=== PATIENT | female | born 1985 | race Caucasian/White ===

== ENCOUNTER 2016-04-14 22:16 | Emergency (ER) | payer OTHER ==
[2016-04-14 22:55] LABS: URINE SOURCE CLEAN CATCH
--- NOTE | 2016-04-14 22:57 | PROVIDER DOCUMENTATION ---
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 pt reports this is the same pain she has always had, denies new numbness, tingling, weakness, loss of bowel or bladder. Review of Systems - Adult - REVIEW OF SYSTEMS - ADULT Constitutional: reports: no symptoms reported. denies: chills, fatique, weight gain, weight loss Eyes: reports: no symptoms reported. denies: discharge, blurred vision, double vision Ears, Nose, Mouth & Throat: reports: no symptoms reported. denies: ear discharge, ear pain, nose pain, loose teeth, throat pain, throat swelling Cardiovascular: reports: no symptoms reported. denies: chest pain, palpitations Respiratory: reports: no symptoms reported. denies: chronic cough, cough, shortness of breath, wheezing Gastrointestinal: reports: no symptoms reported. denies: abdominal pain, diarrhea, nausea, vomiting Genitourinary: reports: no symptoms reported. denies: dysuria, hematuria, urgency Musculoskeletal: reports: see HPI, back pain. denies: bone pain, frequent leg cramps, joint pain, joint swelling, muscle aches, muscle weakness, neck pain Integumentary: reports: no symptoms reported. denies: hives, rash Neurological: reports: no symptoms reported. denies: ataxia, dizziness/vertigo , loss of balance, numbness, paresthesia Psychiatric: reports: no symptoms reported Endocrine: reports: no symptoms reported Hematologic/Lymphatic: reports: no symptoms reported Allergic/Immunologic: reports: no symptoms reported All Other Systems: Reviewed and Negative Past History - Adult - PAST MEDICAL HISTORY-ADULT Review of Records: reports: Old Records Reviewed, Nursing Assessment Review, Medications Reviewed, Social history reviewed & non-contributory. Major Childhood Illnesses: reports: denies history Cardiovascular: reports: denies history Respiratory: reports: asthma Gastrointestinal: reports: denies history Obstetrical/Gynecological: reports: denies history Genitourinary: reports: denies history Musculoskeletal: reports: denies history Neurological: reports: denies history Endocrine/Immune: reports: denies history Other Conditions: reports: denies history - PRIOR SURGERIES/PROCEDURES Surgical/Procedure History: reports: BTL - PRIOR HOSPITALIZATIONS Prior Hospitalizations: reports: none - IMMUNIZATION STATUS Childhood Immunizations: UTD Flu Vaccine: See Nurse Assessment - FAMILY HISTORY Family History: reviewed, not pertinent - SOCIAL HISTORY Smoking: cigarettes Provider spent 3-5 mins advising pt. on dangers of tobacco.: Discussed manners to quit use, and f/u contacts for add'l counseling. Substance Use: none/never Alcohol Use Frequency: never Physical Exam-General - PHYSICAL EXAM-ADULT Initial Vital Signs Reviewed: Yes - CONSTITUTIONAL General Appearance: appears well, alert, no apparent distress - EYES Eyes: pink conjunctivae - HEAD, EARS, NOSE, MOUTH & THROAT HENMT: normocephalic/atraumatic, moist mucous membranes, normal ENT inspection - NECK Neck: non-tender, full range of motion, supple, normal inspection - RESPIRATORY Respiratory: chest non-tender, lungs clear, normal breath sounds - CARDIOVASCULAR Cardiovascular: normal peripheral pulses, regular rate, rhythm, no edema - GASTROINTESTINAL (ABDOMEN) Abdominal Exam: normal bowel sounds, non tender, soft - GENITOURINARY Rectal Exam: deferred Hemoccult Exam: deferred - LYMPHATIC Lymphatic: no adenopathy - MUSCULOSKELETAL Back Exam: normal inspection, no CVA tenderness, no vertebral tenderness, other (lumbaer tenderness with radiation down bilateral buttocks). negative: CVA tenderness, decreased range of motion, ecchymosis, kyphosis, lordosis, muscle spasm, scoliosis, swelling, vertebral tenderness Extremity: normal range of motion, non-tender, normal gait Peripheral Pulses: radial (R): 3+, radial (L): 3+ - SKIN Integumentary: normal color, normal turgor, warm/dry - NEUROLOGIC Neurologic: grossly normal, no motor/sensory deficits - PSYCHIATRIC Psych/Mental Status: normal mood/affect, normal thought content, normal thought process, oriented x 3 Progress - PLAN OF CARE/RESULTS Progress/Plan/Lab Results: Laboratory Tests 04/14/16 04/14/16 22:45 22:45 Urine Source CLEAN CATCH Urine Color YELLOW Urine Clarity SLIGHTLY HAZY A Urine pH 6.0 Ur Specific [place] 1.025 Urine Protein TRACE A Urine Ketones NEGATIVE Urine Blood 1+ A Urine Nitrite NEGATIVE Urine Bilirubin NEGATIVE Urine Urobilinogen 1+(1 mg/dL) Urine Microscopic RBC <10 Urine WBC NEGATIVE Urine Microscopic WBC <10 Ur Epithelial Cells <10 Urine Crystals CA OXALATE PRESENT Urine Bacteria 2+ Urine Glucose NEGATIVE Urine Test NEGATIVE Orders Category Date Time Status TEST-URINE [PREG] Stat Lab 04/14/16 22:[address] W/POSS RFLX CULT [URINALYSIS] Stat Lab 04/14/16 22:45 Completed URINE CULTURE [RM] Routine Lab 04/14/16 23:40 Ordered Hydrocodone/APAP 7.5 mg/325 mg [[place]-7.5] Med 04/15/16 00:00 Discontinued 1 each PO NOW ONE Orphenadrine [Norflex] Med 04/15/16 00:01 Discontinued 100 mg PO NOW ONE Vital Signs - 24 hr 04/14/16 04/15/16 22:38 00:17 Temperature 99.0 F Pulse Rate 78 74 Respiratory 18 Rate Blood Pressure 122/85 117/70 O2 Sat by Pulse 100 99 Oximetry Departure - Departure Time of Disposition Order: 23:59 DIAGNOSIS: Lumbar back pain Qualifiers: Chronicity: chronic Back pain laterality: bilateral Sciatica presence: with sciatica Sciatica laterality: bilateral sciatica Qualified Code(s): M54.42 - Lumbago with sciatica, left side Disposition: HOME 01 Certified Medical Emergency: Emergent Condition: Stable Additional Instructions: ED Follow Up Instructions: You have been treated by a care provider in the Emergency Department. These instructions are being provided to you so you can have an understanding of how to care for yourself upon discharge. Upon discharge from the Emergency Department, you are responsible for making arrangements for follow-up care by a physician of your choice. Take all prescribed medications as directed. Return to the Emergency Department immediately for any new or worsening symptoms. You may call the Physician Referral phone number at [phone] to obtain a list of Physicians who are taking new patients. Prescriptions: Ibuprofen [Motrin] 800 mg PO Q8H PRN PRN #20 tablet PRN Reason: inflammation Orphenadrine [Norflex] 100 mg PO BID #10 tablet Famotidine [Pepcid] 20 mg PO DAILY #20 tablet Referrals: Jacquie Mendoza MD [STAFF PHYSICIAN] - Forms: Return to School/Parent Work Instructions: Famotidine tablets or gelcaps, Ibuprofen tablets and capsules, Back Pain, Adult, [id number], Orphenadrine tablets Attestation - Physician/ Mid-level Attestation Patient care was provided by Mid-level provider (BUILDING MAINTENANCE SUPERINTENDENT/PA):: Yes Mid-level provider:: Jennifer Gilliam Mid-level documentation review:: The Mid-level provider documentation, treatment plan and medical decision making was reviewed by the physician who agrees with all treatment and medical decision making by the MLP.
[2016-04-14 23:33] LABS: BILIRUBIN URINE NEGATIVE (NEGATIVE); BLOOD URINE 1+ (NEGATIVE); CLARITY SLIGHTLY HAZY (CLEAR); COLOR YELLOW; GLUCOSE URINE NEGATIVE (NEGATIVE); LEUKOCYTES URINE NEGATIVE (NEGATIVE); NITRITE URINE NEGATIVE (NEGATIVE); PROTEIN URINE TRACE mg/dL (NEGATIVE); SP GRAVITY URINE 1.025; UROBILINOGEN URINE 1+(1 mg/dL)
[2016-04-14 23:39] LABS: URINE RBC <10 /HPF (<10); URINE WBC <10 /HPF (<10)
[2016-04-14 23:40] LABS: URINE CRYSTAL CA OXALATE PRESENT /HPF; URINE CULTURE PL NEEDED? YES; URINE EPITHELIAL CELLS <10 /HPF (<10)
[2016-04-15] MEDS ORDERED: NORCO-7.5 PO ONE
[2016-04-15] MEDS ORDERED: NORFLEX PO ONE (00:01)
[2016-04-15 00:17] VITALS: BP 117/70
== END 2016-04-15 00:18 | disposition home or self-care (01) ==
LOC: P.ED 22:16
DX: M54.42 Lumbago with sciatica, left side (principal); M79.1 Myalgia; F17.210 Nicotine dependence, cigarettes, uncomplicated; Z71.6 Tobacco abuse counseling; Z79.899 Other long term (current) drug therapy
CPT/HCPCS: 81001; 81025; 87088; 99283

== ENCOUNTER 2016-04-15 12:44 | Emergency (ER) | payer OTHER ==
[2016-04-15 13:10] VITALS: BP 119/76
[2016-04-15] MEDS ORDERED: TORADOL IM ONE (14:33)
--- NOTE | 2016-04-15 14:34 | PROVIDER DOCUMENTATION ---
HPI-Musculoskeletal Pain/Inj <Carola MuñozSven - Last Filed: 04/15/16 14:33> - GENERAL Source: patient - HX OF PRESENT ILLNESS-MUSKULOSKELTAL Quality of Pain: reports: aching Severity in ED: mild Onset/Duration: gradual, 3 days ago Timing: still present, constant Modifying Factors: worse with: movement Locality of Occurance: Home Similar Symptoms Previously?: Yes Recently seen or treated by another doctor?: Yes - BACK & NECK PAIN/INJURY Back/Neck Pain Location: reports: lumbar spine Back/Neck Pain Radiation: reports: Upper Legs, Lower Legs Context / Method of Injury: reports: unknown Associated Symptoms: reports: lower back pain. denies: loss of bladder control , loss of bowel control, fever History of Chronic Neck or Back Pain?: No <Juanjo Barboza - Last Filed: 04/15/16 15:17> - GENERAL Chief Complaint: Back Pain Stated Complaint: RECHECK Time Seen by Provider: 04/15/16 14:25 - HX OF PRESENT ILLNESS-MUSKULOSKELTAL Nature of Presenting Problem: pt is a 30 y/o f that presents with 3 days of low back pain. denies injury, denies hematuria, n/v/d, or abdominal pain. no loss of bowel or urine control. was seen at [facility] yesterday for same and dx with back pain. Pain radiates down both legs (Juanjo Barboza) Review of Systems - Adult - REVIEW OF SYSTEMS - ADULT Constitutional: denies: chills, fever Eyes: reports: no symptoms reported Ears, Nose, Mouth & Throat: reports: no symptoms reported Cardiovascular: denies: chest pain, edema, palpitations Respiratory: denies: cough, shortness of breath, wheezing Gastrointestinal: denies: abdominal pain, diarrhea, nausea, vomiting Genitourinary: denies: dysuria, frequency, hematuria Musculoskeletal: reports: back pain. denies: muscle aches, neck pain Integumentary: reports: no symptoms reported Neurological: denies: dizziness/vertigo, seizure, tremors Psychiatric: reports: no symptoms reported Endocrine: reports: no symptoms reported Hematologic/Lymphatic: reports: no symptoms reported Allergic/Immunologic: reports: no symptoms reported All Other Systems: Reviewed and Negative <Juanjo Barboza - Last Filed: 01/09/17 15:17> Past History - Adult - PAST MEDICAL HISTORY-ADULT Major Childhood Illnesses: reports: denies history Cardiovascular: reports: denies history Respiratory: reports: asthma Gastrointestinal: reports: denies history Obstetrical/Gynecological: reports: denies history Genitourinary: reports: denies history Musculoskeletal: reports: denies history Neurological: reports: denies history Endocrine/Immune: reports: denies history Other Conditions: reports: denies history - PRIOR SURGERIES/PROCEDURES Surgical/Procedure History: reports: BTL - PRIOR HOSPITALIZATIONS Prior Hospitalizations: reports: none - IMMUNIZATION STATUS Childhood Immunizations: UTD Flu Vaccine: See Nurse Assessment - FAMILY HISTORY Family History: reviewed, not pertinent <Carola Muñoz - Last Filed: 04/15/16 14:33> - PAST MEDICAL HISTORY-ADULT Review of Records: reports: Old Records Reviewed, Nursing Assessment Review, Medications Reviewed Musculoskeletal: reports: intervertebral disc disease - PRIOR SURGERIES/PROCEDURES Surgical/Procedure History: reports: reviewed, not pertinent - IMMUNIZATION STATUS Childhood Immunizations: See Nurse Assessment Flu Vaccine: See Nurse Assessment - FAMILY HISTORY Family History: reviewed, not pertinent - SOCIAL HISTORY Smoking: cigarettes, less than 1 pack/day Living Situation: family <Juanjo Barboza - Last Filed: 04/15/16 15:17> Physical Exam-Injury Related - Physical Exam-Injury Related Initial Vital Signs Reviewed: Yes General Appearance: alert, no apparent distress Eyes: PERRL/EOMI, pink conjunctivae Head, Ears, Nose, Mouth & Throat: normocephalic/atraumatic, moist mucous membranes, normal ENT inspection Neck: full range of motion, normal inspection Respiratory: lungs clear, normal breath sounds, no respiratory distress, no accessory muscle use Cardiovascular: regular rate, rhythm, no edema, no gallop Peripheral Pulses: dorsalis-pedis (R): 4+, dorsalis-pedis (L): 4+ Abdominal Exam: normal bowel sounds, non tender, soft, no organomegaly, no pulsatile mass Back Exam: no CVA tenderness, other (paraspinous tenderness lumbar area) Extremity: normal range of motion, normal inspection, no pedal edema Integumentary: normal color, warm/dry Neurologic: scalemaker II-XII nml as tested, no motor/sensory deficits Psych/Mental Status: normal mood/affect, normal thought content, normal thought process, oriented x 3 <Juanjo Barboza - Last Filed: 04/15/16 15:17> Progress <Carola Muñoz - Last Filed: 04/15/16 14:33> <Juanjo Barboza - Last Filed: 04/15/16 15:17> - PLAN OF CARE/RESULTS Progress/Plan/Lab Results: Vital Signs Temp Pulse Resp BP Pulse Ox 04/15/16 13:08 98.2 F 68 18 119/76 98 No Known Allergies Allergy (Verified 04/15/16 15:09) Cyclobenzaprine [Flexeril] 10 mg PO TID #20 tablet 04/15/16 Famotidine [Pepcid] 20 mg PO DAILY #20 tablet 04/15/16 Ketorolac [Toradol] 10 mg PO Q6H PRN PRN #20 tablet 04/15/16 Orders Category Date Time Status Ketorolac [Toradol] Med 04/15/16 14:33 Discontinued 30 mg IM NOW ONE (Juanjo Barboza) Departure - Departure Time of Disposition Order: 14:33 Certified Medical Emergency: Emergent <Carola Muñoz - Last Filed: 04/15/16 14:33> <Juanjo Barboza - Last Filed: 04/15/16 15:17> - Departure DIAGNOSIS: Lumbar back pain Qualifiers: Chronicity: chronic Back pain laterality: bilateral Sciatica presence: with sciatica Sciatica laterality: bilateral sciatica Qualified Code(s): M54.42 - Lumbago with sciatica, left side Disposition: HOME 01 Condition: Stable Additional Instructions: Follow up with Dr. Puga, orthopedic ED Follow Up Instructions: You have been treated by a care provider in the Emergency Department. These instructions are being provided to you so you can have an understanding of how to care for yourself upon discharge. Upon discharge from the Emergency Department, you are responsible for making arrangements for follow-up care by a physician of your choice. Take all prescribed medications as directed. Return to the Emergency Department immediately for any new or worsening symptoms. You may call the Physician Referral phone number at [phone] to obtain a list of Physicians who are taking new patients. Prescriptions: Cyclobenzaprine [Flexeril] 10 mg PO TID #20 tablet Famotidine [Pepcid] 20 mg PO DAILY #20 tablet Ketorolac [Toradol] 10 mg PO Q6H PRN PRN #20 tablet PRN Reason: Pain Referrals: None,PCP [Primary Care Provider] - Amor Puga MD [STAFF PHYSICIAN] - Forms: Return to School/Parent Work Instructions: Back Pain, Adult, [id number] Attestation - Scribe Verification/Attestation Scribe:: Juanjo Barobza Acting as Scribe for:: Carola Muñoz Scribe documention review:: This chart was documented by a scribe and accurately reflects the service the provider performed and the decisions made by the provider. - Physician/ Mid-level Attestation Patient care was provided by Mid-level provider (INFECTION PREVENTIONIST/PA):: Yes Mid-level provider:: Carola Muñoz Mid-level documentation review:: The Mid-level provider documentation, treatment plan and medical decision making was reviewed by the physician who agrees with all treatment and medical decision making by the P. <Juanjo Barboza - Last Filed: 04/15/16 15:17> Physician Attestation
== END 2016-04-15 15:14 | disposition home or self-care (01) ==
LOC: ED 12:44
DX: M54.42 Lumbago with sciatica, left side (principal); M79.605 Pain in left leg; M79.604 Pain in right leg; R42 Dizziness and giddiness; F17.210 Nicotine dependence, cigarettes, uncomplicated
CPT/HCPCS: 96372; J1885

== ENCOUNTER 2016-06-11 03:57 | Emergency (ER) | payer OTHER ==
[2016-06-11 04:24] VITALS: BP 115/66
[2016-06-11 04:40] LABS: URINE SOURCE CLEAN CATCH
[2016-06-11 05:09] LABS: BILIRUBIN URINE NEGATIVE (NEGATIVE); BLOOD URINE TRACE (NEGATIVE); CLARITY CLEAR (CLEAR); COLOR YELLOW; GLUCOSE URINE NEGATIVE (NEGATIVE); LEUKOCYTES URINE TRACE (NEGATIVE); NITRITE URINE NEGATIVE (NEGATIVE); PROTEIN URINE TRACE mg/dL (NEGATIVE); SP GRAVITY URINE 1.015; UROBILINOGEN URINE NORMAL
[2016-06-11 05:10] LABS: URINE RBC <10 /HPF (<10); URINE WBC <10 /HPF (<10)
[2016-06-11 05:11] LABS: URINE CULTURE PL NEEDED? YES; URINE EPITHELIAL CELLS <10 /HPF (<10)
--- NOTE | 2016-06-11 05:27 | PROVIDER DOCUMENTATION ---
HPI-Female /OB/Breast - General Chief Complaint: Female Stated Complaint: UTI SX, CONGESTED Time Seen by Provider: 06/11/16 05:13 Source: reports: patient Allergies/Adverse Reactions: Patient Allergies Allergy/AdvReac Type Severity Reaction Status Date / Time No Known Allergies Allergy Verified 05/05/16 11:41 Home Medications: Home Medication List Medication Instructions Recorded Confirmed Last Taken Type Acetaminophen with Codeine 1 each PO Q6H PRN PRN #14 tablet 06/11/16 Unknown Rx [Tylenol with Codeine #3 Tablet] Ciprofloxacin HCl [Cipro] 500 mg PO BID #14 tablet 06/11/16 Unknown Rx - History of Present Illness-Female /OB Nature of Presenting Problem: dysuria for days having back pain Does patient report she is ?: No Location of complaint: reports: right flank, left flank Radiation: reports: none Quality of Pain: reports: aching Severity in ED: reports: moderate Onset/Duration: reports: 2 days ago Timing: reports: still present Context/Activities at Onset: reports: light activity Vaginal Symptoms: reports: no symptoms Vaginal Bleeding Amount: None Urinary Symptoms: reports: dysuria, frequency Related Symptoms: reports: no symptoms Modifying Factors: improves with: nothing Associated Symptoms: reports: back/neck pain. denies: constipation, fever/ chills, nausea, vomiting, weakness Similar Symptoms Previously?: No Recently seen or treated by another doctor?: No Review of Systems - Adult - REVIEW OF SYSTEMS - ADULT Constitutional: reports: chills. denies: fever, night sweats Eyes: reports: no symptoms reported Ears, Nose, Mouth & Throat: reports: no symptoms reported Cardiovascular: reports: no symptoms reported Respiratory: reports: cough Gastrointestinal: reports: no symptoms reported. denies: hematemesis, nausea, vomiting Genitourinary: reports: dysuria, frequency, hematuria Musculoskeletal: reports: back pain Integumentary: reports: no symptoms reported Neurological: reports: no symptoms reported Psychiatric: reports: no symptoms reported Endocrine: reports: no symptoms reported Hematologic/Lymphatic: reports: no symptoms reported Allergic/Immunologic: reports: no symptoms reported Past History - Adult - PAST MEDICAL HISTORY-ADULT Review of Records: reports: Nursing Assessment Review, Medications Reviewed, Social history reviewed & non-contributory. Major Childhood Illnesses: reports: denies history Cardiovascular: reports: denies history Respiratory: reports: asthma Gastrointestinal: reports: denies history Obstetrical/Gynecological: reports: denies history Genitourinary: reports: denies history Musculoskeletal: reports: intervertebral disc disease Neurological: reports: denies history Endocrine/Immune: reports: denies history Other Conditions: reports: denies history - PRIOR SURGERIES/PROCEDURES Surgical/Procedure History: reports: reviewed, not pertinent - PRIOR HOSPITALIZATIONS Prior Hospitalizations: reports: none - IMMUNIZATION STATUS Childhood Immunizations: See Nurse Assessment Flu Vaccine: See Nurse Assessment - FAMILY HISTORY Family History: reviewed, not pertinent Physical Exam-General - PHYSICAL EXAM-ADULT Initial Vital Signs Reviewed: Yes - CONSTITUTIONAL General Appearance: no apparent distress - EYES Eyes: PERRL/EOMI, pink conjunctivae - HEAD, EARS, NOSE, MOUTH & THROAT HENMT: normocephalic/atraumatic - NECK Neck: supple - RESPIRATORY Respiratory: lungs clear - CARDIOVASCULAR Cardiovascular: regular rate, rhythm - GASTROINTESTINAL (ABDOMEN) Abdominal Exam: soft - LYMPHATIC Lymphatic: no adenopathy - MUSCULOSKELETAL Back Exam: no CVA tenderness, muscle spasm Extremity: normal range of motion - SKIN Integumentary: normal color, normal turgor - NEUROLOGIC Neurologic: grossly normal - PSYCHIATRIC Psych/Mental Status: normal mood/affect Progress - PLAN OF CARE/RESULTS Progress/Plan/Lab Results: Laboratory Tests 06/11/16 06/11/16 04:25 04:25 Urine Source CLEAN CATCH Urine Color YELLOW Urine Clarity CLEAR Urine pH 6.0 Ur Specific [place] 1.015 Urine Protein TRACE A Urine Ketones NEGATIVE Urine Blood TRACE Urine Nitrite NEGATIVE Urine Bilirubin NEGATIVE Urine Urobilinogen NORMAL Urine Microscopic RBC <10 Urine WBC TRACE A Urine Microscopic WBC <10 Ur Epithelial Cells <10 Urine Bacteria 2+ Urine Glucose NEGATIVE Urine Test NEGATIVE Departure - Departure Time of Disposition Order: 05:25 DIAGNOSIS: UTI (urinary tract infection) Qualifiers: Urinary tract infection type: acute cystitis Hematuria presence: without hematuria Qualified Code(s): N30.00 - Acute cystitis without hematuria Disposition: HOME 01 Certified Medical Emergency: Emergent Condition: Stable Additional Instructions: ED Follow Up Instructions: You have been treated by a care provider in the Emergency Department. These instructions are being provided to you so you can have an understanding of how to care for yourself upon discharge. Upon discharge from the Emergency Department, you are responsible for making arrangements for follow-up care by a physician of your choice. Take all prescribed medications as directed. Return to the Emergency Department immediately for any new or worsening symptoms. You may call the Physician Referral phone number at [phone] to obtain a list of Physicians who are taking new patients. Prescriptions: Acetaminophen with Codeine [Tylenol with Codeine #3 Tablet] 1 each PO Q6H PRN PRN #14 tablet PRN Reason: Pain Ciprofloxacin HCl [Cipro] 500 mg PO BID #14 tablet
[2016-06-11] MEDS ORDERED: CIPRO PO ONE (05:29)
[2016-06-11] MEDS ORDERED: PYRIDIUM PO ONE (05:29)
== END 2016-06-11 05:55 | disposition home or self-care (01) ==
LOC: P.ED 03:57
DX: N30.00 Acute cystitis without hematuria (principal); R30.0 Dysuria; M54.5 Low back pain; R68.83 Chills (without fever); R35.0 Frequency of micturition; R05 Cough
CPT/HCPCS: 81001; 81025; 87088

== ENCOUNTER 2016-06-17 11:42 | Emergency (ER) | payer OTHER ==
[2016-06-17 13:17] LABS: URINE CULTURE NEEDED? NO; URINE MICRO REVIEW NEEDED? NO; URINE SOURCE CLEAN CATCH
[2016-06-17 13:24] LABS: BILIRUBIN URINE NEGATIVE (NEGATIVE); BLOOD URINE NEGATIVE (NEGATIVE); COLOR YELLOW; GLUCOSE URINE NEGATIVE (NEGATIVE); LEUKOCYTES URINE NEGATIVE (NEGATIVE); NITRITE URINE NEGATIVE (NEGATIVE); PH URINE 6.5; PROTEIN URINE TRACE mg/dL (NEGATIVE); SP GRAVITY URINE 1.029; TURBIDITY URINE CLEAR (CLEAR); UR EPITHELIAL CELLS <10 /HPF (<10); URINE BACTERIA NEGATIVE /HPF; URINE RBC <10 /HPF (<10); URINE WBC <10 /HPF (<10); UROBILINOGEN URINE NORMAL (NORMAL)
[2016-06-17 13:53] LABS: MANUAL DIFF NEEDED? NO
[2016-06-17 14:07] LABS: BASO% 0.2 % (0.0-0.8); EOS# 0.08 X1000 (0.0-0.7); EOS% 0.9 % (0.0-10.0); HEMATOCRIT 46.2 % (37.0-47.0); HEMOGLOBIN 16.2 g/dL (12.0-16.0); LYMPH# 1.05 X1000 (1.2-3.4); LYMPH% 11.3 % (20.5-51.1); MCH 28.7 PG (27-31); MCHC 35.1 g/dL (33-37); MCV 81.9 FL (81-99); MONO# 0.35 X1000 (0.11-0.59); MONO% 3.8 % (1.7-9.3); MPV 12.1 FL (7.4-10.4); NEUT% 83.8 % (42.2-75.2); PLT 129 X1000 (130-400); RBC 5.64 XMIL (4.2-5.4)
[2016-06-17 14:33] LABS: AGAP 13; ALBUMIN 4.3 g/dL (3.5-5.0); ALKALINE PHOSPHATASE 62 U/L (32-104); BUN 10 mg/dL (8-22); CALCIUM 9.3 mg/dL (8.8-10.2); CHLORIDE 104 mmol/L (98-107); COSMO 279; GOT 20 U/L (10-30); GPT 20 U/L (10-36); LIPASE 22 U/L (13-60); POTASSIUM 4.2 mmol/L (3.5-5.1); SODIUM 140 mmol/L (136-145); TCO2 23 mmol/L (25-35); TOTAL BILIRUBIN 0.63 mg/dL (0.20-1.00); TOTAL PROTEIN 7.6 g/dL (6.3-8.3)
[2016-06-17] MEDS ORDERED: ZOFRAN IV ONE (14:56)
[2016-06-17] MEDS ORDERED: TYLENOL PO ONE (15:08)
--- NOTE | 2016-06-17 15:11 | PROVIDER DOCUMENTATION ---
HPI-General Adult - General Source: patient - History of Present Illness -Gen Adult Nature of Presenting Problems: patient is a 30 y/o F that presents to the ER with one week of flu like symptoms. patient has cough, congestion, body aches, n/v/d, and fever. was seen last week at [facility] saw given antibiotic and T#3s with no relief of symptoms. Location of Pain/Injury: reports: generalized Quality of Pain: reports: aching Severity: reports: mild Onset/Duration: reports: gradual, 1 week ago Timing: reports: still present, constant Context/Activities at Onset: reports: other (recent URI) Modifying Factors: improves with: nothing Associated Symptoms: reports: cough, diarrhea, EENT symptoms, fever/chills, muscle aches, nausea, vomiting. denies: genitourinary problems Similar Symptoms Previously?: No Recently seen or treated by another doctor?: No <Juanjo Barboza - Last Filed: 06/17/16 15:08> <Moncho Sanches - Last Filed: 06/17/16 15:15> - General Chief Complaint: Flu Symptoms Stated Complaint: VOMITING,DIARRHEA,LOWER BACK PAIN Time Seen by Provider: 06/17/16 12:54 Allergies/Adverse Reactions: Patient Allergies Allergy/AdvReac Type Severity Reaction Status Date / Time No Known Allergies Allergy Verified 06/17/16 12:43 Home Medications: Home Medication List Medication Instructions Recorded Confirmed Last Taken Type Acetaminophen with Codeine 1 each PO Q6H PRN PRN #14 tablet 06/11/16 06/17/16 Unknown Rx [Tylenol with Codeine #3 Tablet] Ciprofloxacin HCl [Cipro] 500 mg PO BID #14 tablet 06/11/16 06/17/16 Unknown Rx Azithromycin [Zithromax Z-Moises] 250 mg PO DIRECTED #1 pkg 06/17/16 Unknown Rx Ibuprofen [Motrin] 800 mg PO Q8H PRN PRN #20 tablet 06/17/16 Unknown Rx Prednisone 20 mg PO DAILY #6 tablet 06/17/16 Unknown Rx Promethazine [Phenergan] 25 mg PO Q6H PRN PRN #20 tablet 06/17/16 Unknown Rx Review of Systems - Adult - REVIEW OF SYSTEMS - ADULT Constitutional: reports: chills, fever, fatique Eyes: reports: no symptoms reported Ears, Nose, Mouth & Throat: reports: no symptoms reported Cardiovascular: denies: chest pain, palpitations, syncope Respiratory: reports: cough. denies: shortness of breath, wheezing Gastrointestinal: reports: diarrhea, nausea, vomiting Genitourinary: reports: no symptoms reported Musculoskeletal: reports: muscle aches, muscle weakness Integumentary: reports: no symptoms reported Neurological: reports: no symptoms reported Psychiatric: reports: no symptoms reported Endocrine: reports: no symptoms reported Hematologic/Lymphatic: reports: no symptoms reported Allergic/Immunologic: reports: no symptoms reported All Other Systems: Reviewed and Negative <Juanjo Barboza - Last Filed: 06/17/16 15:08> Past History - Adult - PAST MEDICAL HISTORY-ADULT Review of Records: reports: Old Records Reviewed, Nursing Assessment Review, Medications Reviewed, Social history reviewed & non-contributory. Major Childhood Illnesses: reports: denies history Cardiovascular: reports: denies history Respiratory: reports: asthma Gastrointestinal: reports: denies history Obstetrical/Gynecological: reports: denies history Genitourinary: reports: denies history Musculoskeletal: reports: intervertebral disc disease Neurological: reports: denies history Endocrine/Immune: reports: denies history Other Conditions: reports: denies history - PRIOR SURGERIES/PROCEDURES Surgical/Procedure History: reports: reviewed, not pertinent - PRIOR HOSPITALIZATIONS Prior Hospitalizations: reports: none - IMMUNIZATION STATUS Childhood Immunizations: See Nurse Assessment Flu Vaccine: See Nurse Assessment - FAMILY HISTORY Family History: reviewed, not pertinent <Juanjo Barboza - Last Filed: 06/17/16 15:08> Physical Exam-General - PHYSICAL EXAM-ADULT Initial Vital Signs Reviewed: Yes - CONSTITUTIONAL General Appearance: alert, no apparent distress - EYES Eyes: PERRL/EOMI, pink conjunctivae - HEAD, EARS, NOSE, MOUTH & THROAT HENMT: normocephalic/atraumatic, moist mucous membranes, normal ENT inspection, TMs normal, pharynx normal - NECK Neck: full range of motion, normal inspection - RESPIRATORY Respiratory: lungs clear, normal breath sounds, no respiratory distress, no accessory muscle use - CARDIOVASCULAR Cardiovascular: regular rate, rhythm, no edema, no murmur - GASTROINTESTINAL (ABDOMEN) Abdominal Exam: normal bowel sounds, non tender, soft, no organomegaly, no pulsatile mass - MUSCULOSKELETAL Back Exam: no CVA tenderness, no vertebral tenderness Extremity: normal range of motion, normal inspection - SKIN Integumentary: normal color, warm/dry - NEUROLOGIC Neurologic: grossly normal, no motor/sensory deficits - PSYCHIATRIC Psych/Mental Status: normal mood/affect, normal thought content, normal thought process, oriented x 3 <Juanjo Barboza - Last Filed: 06/17/16 15:08> Progress - PLAN OF CARE/RESULTS Progress/Plan/Lab Results: Orders Category Date Time Status ED: Urine Bedside ORDERED Care 06/17/16 12:59 Inactive Saline Loc NOW Care 06/17/16 13:13 Active CHEST-2 VIEWS [RAD] Stat Exams 06/17/16 12:59 Taken CBC WITH ELECTRONIC DIFF [HEME] Stat Lab 06/17/16 13:43 Completed COMPREHENSIVE METABOLIC PANEL [CHEM] Stat Lab 06/17/16 13:43 Completed Flu Swab [INFLUENZA SCREEN A/B] Stat Lab 06/17/16 12:07 Completed LIPASE [CHEM] Stat Lab 06/17/16 13:43 Completed TEST-URINE [PREG] Stat Lab 06/17/16 13:00 Completed URINALYSIS W/POSS RFLX CULT [URINALYSIS] Stat Lab 06/17/16 13:00 Completed Acetaminophen [Tylenol] Med 06/17/16 15:08 Discontinued 1,000 mg PO NOW ONE Ondansetron [Zofran] Med 06/17/16 14:56 Discontinued 4 mg IV NOW ONE Vital Signs Temp Pulse Resp BP Pulse Ox 06/17/16 12:05 98.4 F 67 18 134/76 100 No Known Allergies Allergy (Verified 06/17/16 12:43) Acetaminophen with Codeine [Tylenol with Codeine #3 Tablet] 1 each PO Q6H PRN PRN #14 tablet 06/11/16 Ciprofloxacin HCl [Cipro] 500 mg PO BID #14 tablet 06/11/16 I&O 06/16/16 06/17/16 06/18/16 06:59 06:59 06:59 Output Total 30 Balance -30 Laboratory 06/17/16 06/17/16 06/17/16 13:43 13:43 13:00 WBC 9.32 RBC 5.64 H Hgb 16.2 H Hct 46.2 MCV 81.9 MCH 28.7 MCHC 35.1 RDW Std Deviation 12.6 Plt Count 129 L MPV 12.1 H Immature Gran % (Auto) 0.0 Neut % (Auto) 83.8 H Lymph % (Auto) 11.3 L [place] % (Auto) 3.8 Eos % (Auto) 0.9 Baso % (Auto) 0.2 Immature Gran # (Auto) 0.00 Neut # (Auto) 7.82 H Lymph # (Auto) 1.05 L [place] # (Auto) 0.35 Eos # (Auto) 0.08 Baso # (Auto) 0.02 Sodium 140 Potassium 4.2 Chloride 104 Carbon Dioxide 23 L Anion Gap 13 BUN 10 Creatinine 0.7 Estimated GFR/1.73 m2 > 60 BUN/Creatinine Ratio 14 Glucose 106 H Calculated Osmolality 279 Calcium 9.3 Total Bilirubin 0.63 AST 20 ALT 20 Alkaline Phosphatase 62 Total Protein 7.6 Albumin 4.3 Globulin 3.3 Albumin/Globulin Ratio 1.3 Lipase 22 Urine Source Urine Color Urine Turbidity Urine pH Ur Specific [place] Urine Protein Ur Glucose (Stick) Ur Ketones (Stick) Urine Blood Urine Nitrite Urine Bilirubin Urobilinogen Dipstick Urine Leukocytes Urine WBC (Auto) Urine RBC (Auto) U Epithel Cells (Auto) Urine Bacteria (Auto) Urine Test NEGATIVE 06/17/16 13:00 WBC RBC Hgb Hct MCV MCH MCHC RDW Std Deviation Plt Count MPV Immature Gran % (Auto) Neut % (Auto) Lymph % (Auto) [place] % (Auto) Eos % (Auto) Baso % (Auto) Immature Gran # (Auto) Neut # (Auto) Lymph # (Auto) [place] # (Auto) Eos # (Auto) Baso # (Auto) Sodium Potassium Chloride Carbon Dioxide Anion Gap BUN Creatinine Estimated GFR/1.73 m2 BUN/Creatinine Ratio Glucose Calculated Osmolality Calcium Total Bilirubin AST ALT Alkaline Phosphatase Total Protein Albumin Globulin Albumin/Globulin Ratio Lipase Urine Source CLEAN CATCH Urine Color YELLOW Urine Turbidity CLEAR Urine pH 6.5 Ur Specific [place] 1.029 Urine Protein TRACE A Ur Glucose (Stick) NEGATIVE Ur Ketones (Stick) NEGATIVE Urine Blood NEGATIVE Urine Nitrite NEGATIVE Urine Bilirubin NEGATIVE Urobilinogen Dipstick NORMAL Urine Leukocytes NEGATIVE Urine WBC (Auto) <10 Urine RBC (Auto) <10 U Epithel Cells (Auto) <10 Urine Bacteria (Auto) NEGATIVE Urine Test Pt became angry when we gave her tylenol for her HERR and is requesting to leave. Will d/c home. <Moncho Sanches - Last Filed: 06/17/16 15:15> Departure <Juanjo Barboza - Last Filed: 06/17/16 15:08> - Departure Time of Disposition Order: 15:14 Certified Medical Emergency: Emergent <Moncho Sanches - Last Filed: 06/17/16 15:15> - Departure DIAGNOSIS: Upper respiratory infection Qualifiers: URI type: unspecified URI Qualified Code(s): J06.9 - Acute upper respiratory infection, unspecified Disposition: HOME 01 Condition: Good Additional Instructions: Take medication as prescribed. Rest and stay well hydrated. Follow up with your primary care provider. ED Follow Up Instructions: You have been treated by a care provider in the Emergency Department. These instructions are being provided to you so you can have an understanding of how to care for yourself upon discharge. Upon discharge from the Emergency Department, you are responsible for making arrangements for follow-up care by a physician of your choice. Take all prescribed medications as directed. Return to the Emergency Department immediately for any new or worsening symptoms. You may call the Physician Referral phone number at [phone] to obtain a list of Physicians who are taking new patients. Prescriptions: Ibuprofen [Motrin] 800 mg PO Q8H PRN PRN #20 tablet PRN Reason: inflammation Promethazine [Phenergan] 25 mg PO Q6H PRN PRN #20 tablet PRN Reason: Nausea Prednisone 20 mg PO DAILY #6 tablet Azithromycin [Zithromax Z-Moises] 250 mg PO DIRECTED #1 pkg Attestation - Scribe Verification/Attestation Scribe:: Juanjo Barboza Acting as Scribe for:: Moncho Sanches Scribe documention review:: This chart was documented by a scribe and accurately reflects the service the provider performed and the decisions made by the provider. - Physician/ ISH Attestation Patient care was provided by Advanced Practice Provider:: Yes Advanced Practice Provider:: Moncho Sanches Advanced Practice Provider documentation review:: The Mid-level provider documentation, treatment plan and medical decision making was reviewed by the physician who agrees with all treatment and medical decision making by the MLP. <Juanjo Barboza - Last Filed: 06/17/16 15:08> - Physician/ ISH Attestation Patient care was provided by Advanced Practice Provider:: Yes Advanced Practice Provider:: Moncho Sanches Advanced Practice Provider documentation review:: The Mid-level provider documentation, treatment plan and medical decision making was reviewed by the physician who agrees with all treatment and medical decision making by the MLP. <Moncho Sanches - Last Filed: 06/17/16 15:15> Physician Attestation - Physician Attestation I, the provider, attest to the following statement:: Moncho Sanches Physician documentation Attestation:: This documentation recorded by the scribe accurately reflects the service I personally performed and the decisions made by me. <Juanjo Barboza - Last Filed: 06/17/16 15:08>
[2016-06-17 15:28] VITALS: BP 116/62
--- NOTE | 2016-06-17 17:54 | Diag Imaging Result Document ---
PROCEDURE NAME: CHEST-2 VIEWS - 06/17/2016 CHEST X-RAY 2 VIEWS: COMPARISON: 05/05/2016. FINDINGS: The lungs are normally expanded and clear. Heart size and mediastinal contours are normal. No pneumothorax or pleural effusion. IMPRESSION: Negative exam.
== END 2016-06-17 15:28 | disposition home or self-care (01) ==
LOC: ED 11:42
DX: J06.9 Acute upper respiratory infection, unspecified (principal); R05 Cough; R50.9 Fever, unspecified; R53.83 Other fatigue; R19.7 Diarrhea, unspecified; R11.2 Nausea with vomiting, unspecified; M79.1 Myalgia; M62.81 Muscle weakness (generalized)
CPT/HCPCS: 71020; 80053; 81001; 81025; 83690; 85025; 87804; J2405